=== PATIENT | female | born 1980 | race Caucasian/White ===

== ENCOUNTER 2019-10-29 08:30 | Outpatient (CLI) | payer OTHER, SELFPAY ==
--- NOTE | ~2019-10-29 | MM_ITS ---
EXAMINATION: MM screening da BI w cha HISTORY: Screening mammogram TECHNIQUE: Craniocaudal and mediolateral oblique 3-D tomosynthesis images were obtained and synthetic 2-D images were generated. CAD analysis was submitted and interpreted. COMPARISON: 07/27/2018 BREAST PARENCHYMAL COMPOSITION: The breasts are heterogeneously dense, which may obscure small masses . FINDINGS: There is no evidence of suspicious mass, calcification, or architectural distortion to sugg est malignancy in either breast. There has been no suspicious interval change. IMPRESSION: 1. No mammographic evidence of malignancy. 2. Recommend routine screening mammography in one year. BI-RADS Category 1: Negative Reviewed, dictated and finalized at location A.
== END 2019-10-29 08:31 | disposition home or self-care (01) ==
LOC: ANHIMG 08:35
PROVIDERS: PCP Physician Assistant; Visit Provider Physician Assistant
DX: Z12.31 Encounter for screening mammogram for malignant neoplasm of breast (principal)
CPT/HCPCS: 77063; 77067

== ENCOUNTER → 2021-02-01 15:40 | Outpatient (CLI) | payer OTHER, SELFPAY ==
--- NOTE | ~2021-02-01 | MM_ITS ---
EXAMINATION: MM screening da BI w cha HISTORY: Screening mammogram TECHNIQUE: Craniocaudal and mediolateral oblique 3-D tomosynthesis images were obtained and synthetic 2-D images were generated. CAD analysis was submitted and interpreted. COMPARISON: 10/29/2019, 07/27/2018 bilateral digital screening mammogram examinations BREAST PARENCHYMAL COMPOSITION: The breasts are heterogeneously dense, which may obscure small masses . FINDINGS: There is no evidence of suspicious mass, calcification, or architectural distortion to sugg est malignancy in either breast. There has been no suspicious interval change. IMPRESSION: 1. No mammographic evidence of malignancy. 2. Recommend routine screening mammography in one year. BI-RADS Category 1: Negative Reviewed, dictated and finalized at location A.
== END ==
PROVIDERS: PCP Physician Assistant; Visit Provider Physician Assistant
DX: Z12.31 Encounter for screening mammogram for malignant neoplasm of breast (principal)
CPT/HCPCS: 77063; 77067

== ENCOUNTER → 2022-02-04 07:24 | Outpatient (CLI) | payer OTHER, SELFPAY ==
--- NOTE | ~2022-02-04 | MM_ITS ---
EXAMINATION: MM screening da BI w cha HISTORY: Screening mammogram TECHNIQUE: Craniocaudal and mediolateral oblique 3-D tomosynthesis images were obtained and synthetic 2-D images were generated. CAD analysis was submitted and interpreted. COMPARISON: 02/01/2021, 10/29/2019, 07/27/2018 bilateral screening mammogram examinations BREAST PARENCHYMAL COMPOSITION: There are scattered areas of fibroglandular density. FINDINGS: There is no evidence of suspicious mass, calcification, or architectural distortion to sugg est malignancy in either breast. There has been no suspicious interval change. IMPRESSION: 1. No mammographic evidence of malignancy. 2. Recommend routine screening mammography in one year. BI-RADS Category 1: Negative Reviewed, dictated and finalized at location A.
== END ==
PROVIDERS: PCP Physician Assistant; Visit Provider Obstetrics & Gynecology Gynecology
DX: Z12.31 Encounter for screening mammogram for malignant neoplasm of breast (principal)
CPT/HCPCS: 77063; 77067

== ENCOUNTER → 2023-02-07 07:23 | Outpatient (CLI) | payer OTHER, SELFPAY ==
--- NOTE | ~2023-02-07 | MM_ITS ---
EXAMINATION: MM screening da BI w cha HISTORY: Screening mammogram TECHNIQUE: Craniocaudal and mediolateral oblique 3-D tomosynthesis images were obtained and synthetic 2-D images were generated. CAD analysis was submitted and interpreted. COMPARISON: 02/04/2022, 02/01/2021, 10/29/2019 bilateral screening mammogram examinations BREAST PARENCHYMAL COMPOSITION: There are scattered areas of fibroglandular density. FINDINGS: There is no evidence of suspicious mass, calcification, or architectural distortion to sugg est malignancy in either breast. There has been no suspicious interval change. IMPRESSION: 1. No mammographic evidence of malignancy. 2. Recommend routine screening mammography in one year. BI-RADS Category 1: Negative Reviewed, dictated and finalized at location A.
== END ==
PROVIDERS: PCP Nurse Practitioner; Visit Provider Nurse Practitioner
DX: Z12.31 Encounter for screening mammogram for malignant neoplasm of breast (principal)
CPT/HCPCS: 77063; 77067

== ENCOUNTER 2024-02-10 11:33 | Outpatient (CLI) | payer OTHER, SELFPAY ==
--- NOTE | ~2024-02-10 | MM_ITS ---
EXAMINATION: MM screening da BI w cha HISTORY: Screening TECHNIQUE: Craniocaudal and mediolateral oblique 3-D tomosynthesis images were obtained and synthetic 2-D images were generated. CAD analysis was submitted and interpreted. COMPARISON: Comparison to multiple prior studies sequentially, with oldest reviewed study dated 07/27. BREAST PARENCHYMAL COMPOSITION: Dense: The breasts are heterogeneously dense, which may obscure small masses FINDINGS: There is no evidence of suspicious mass, calcification, or architectural distortion to sugg est malignancy in either breast. There has been no suspicious interval change. IMPRESSION: 1. No mammographic evidence of malignancy. 2. Recommend routine screening mammography in one year. BI-RADS CATEGORY 1 - NEGATIVE Reviewed, dictated and finalized at location B.
== END 2024-02-10 11:34 | disposition home or self-care (01) ==
LOC: MICIMG 11:33
PROVIDERS: PCP Nurse Practitioner; Visit Provider Nurse Practitioner
DX: Z12.31 Encounter for screening mammogram for malignant neoplasm of breast (principal)
CPT/HCPCS: 77063; 77067

== ENCOUNTER 2024-10-26 02:49 | Day surgery (SDC) | payer OTHER, SELFPAY ==
[2024-10-13 10:59] VITALS: BMI 20.7
--- OUTSIDE RECORDS SUMMARY | 2024-10-26 02:51 | XMS_ITS | Data Portability ---
Author Organization [facility] Address [address] [place] [address] Care Team Providers Care Internet Technology Manager Name Role Phone ALYSSA MARTINEZ Primary Care Provider Unavailab le Assessment Encounter Date Assessment Date Assessment LastModified by Organization Details LastModified Time 01/20/2024 01/20/2024 Mammogram due in Feb. Gyne exam UTD : Dr. Ma Colonoscopy screening due. dental UTD eye exam UTD [email or web address] Not available 01/20/2024 10:37:06 Plan of Treatment Reminders Order Date Submit Date Provider Last Modified By Organization Details Last Modified Time Details Appointments ANNUAL 30 2024 09:00A M KULDEEP Melgoza Not available Not available Not available Lab TSH + free T4, serum 2023 024 [employer] [facility], [address], [address], 02/03/2024 09:25:35 lipid panel, serum [email or web address] [facility], [address], [address], 02/09/2024 12:51:20 vitamin B12 + folate, serum or blood 2023 024 [employer] [facility], [address], [address], 02/03/2024 09:25:36 CBC w/ auto diff 2023 024 [employer] [facility], [address], [place], [address], 02/03/2024 09:25:36 CMP, serum or plasma 2023 [employer] [facility], [address], [place], [address], 02/03/2024 09:25:36 HbA1c (hemoglob in A1c), blood 2023 [employer] [facility], [address], [place], [address], 02/03/2024 09:25:35 Referral None recorded. Procedures colonosco py screening (PROC) 2023 [facility], [address], [address], [place], [address], 10/22/2024 09:46:12 Surgeries None recorded. Imaging None recorded. Medication Orders None recorded. Patient TargetsNo targets recorded. Patient InstructionsNo instructions recorded. Reason for Referral None Reported. Results Created Date Observation Date Name Description Value Unit Range Abnormal Flag Note LastModifiedBy Organization Detail LastModifiedTime Result Notes None recorded. Problems Name Problem SNOMED Code Status Onset Date Resolution Date Notes Provider Name and Address Organization Details Recorded Time Body mass index 20-24 - normal 054685546 Active KULDEEP Melgoza Attn: Accounting ,[address] [place], [address] , [facility] 01/26/2024 08:16:15 Problem Notes None recorded. Procedures Surgical History Date Name Laterality Status Provider Name and Address Organization Details Recorded Time extraction of wisdom tooth completed Charlotte Hobson MA [place] [facility] 01/20/2024 10:16:14 cholecystectomy completed Charlotte Hobson MA [facility] 01/20/2024 10:16:17 Imaging Results None recorded. Procedure Notes None recorded. Medical Equipment None Reported. Allergies No known drug allergies Medications Name Sig Start Date Stop Date Status Note LastModified by Organization Details LastModified Time valacyclovi r 1 gram tablet TAKE 2 TABLETS BY MOUTH EVERY 12 HOURS FOR 1 DAY NEEDED FOR COLD SORE OR FLARE UP active Not Available Not Available No t Available doxycycline hyclate 50 mg capsule TAKE 1 TABLET BY MOUTH DAILY WITH FOOD active Not Available Not Available No t Available sertraline 100 mg tablet TAKE 1 TABLET BY MOUTH DAILY active Not Available Not Available No t Available phentermine 37.5 mg tablet TAKE 1 TABLET BY MOUTH EVERY DAY 01/19 completed Not Available Not Available Not Available hydrocortis one 2.5 % topical cream with perineal applicator APPLY A THIN LAYER TO THE RECTAL REGION TWO TO FOUR TIMES DAILY active Not Available Not Available No t Available metronidazo le 0.75 % topical gel APPLY TOPICALLY TO THE AFFECTED AREA OF FACE TWICE DAILY active Not Available Not Available No t Available Contrave 8 mg-90 mg tablet,exte nded release 01/19 completed Not Available Not Available Not Available Wegovy 0.25 mg/0.5 mL subcutaneou s pen injector active Not Available Not Available Not Available Vitals Date Recorded Systolic blood pressure Diastolic blood pressure Provider Name and Address Organization Details Last Updated DateTime 01/20/2024 130 mm[Hg] 80 mm[Hg] KULDEEP Melgoza Attn: Accounting,[address] [place], [address], [facility] 01/20/2024 10:36:09 Date Recorded Respiratory rate Body height Body mass index (BMI) Body weight Oxygen saturation Oxygen saturation in Arterial blood by Pulse oximetry Heart rate Systolic blood pressure Diastolic blood pressure Provider Name and Address Organization Details Last Updated DateTime 4 18 /min 175.26 cm 24.5 kg/m2 89372.3 3 g 100 % 100 % 84 /min 116 mm[Hg] 82 mm[Hg] Charlotte Hobson MA [facility] 4 10:17:46 Social History Question Answer Notes LastModified by Organizat ion Details LastModified Time Tobacco Smoking Status Never Smoker Charlotte Hobson MA null, [facility] 01/20/2024 10:15:43 Do You Have An Advance Directive? Yes Information n ot available 01/20/2024 Are You Blind Or Do You Have Difficulty Seeing? No Information n ot available 01/20/2024 What Is Your Level Of Caffeine Consumption? Moderate Information not available 01/20/2024 In The 14 Days Before Symptom Onset, Have You Had Close Contact With A Laboratory-confirm ed COVID-19 While That Case Was Ill? No Information n ot available 01/20/2024 In The 14 Days Before Symptom Onset, Have You Had Close Contact With A Person Who Is Under Investigation For COVID-19 While That Person Was Ill? No Information not available 01/20/2024 Have You Been To An Area Known To Be High Risk For COVID-19? No Information not available 01/20/2024 Are You Deaf Or Do You Have Serious Difficulty Hearing? No Information not available 01/20/2024 What Type Of Diet Are You Following? REGULAR Information n ot available 01/20/2024 Are There Any Guns Present In Your Home? No Information not available 01/20/2024 What Was The Date Of Your Most Recent Tobacco Screening? 01/20/2024 Information not available 01/20/2024 What Is Your Relationship Status? Information not available 01/20/2024 Do You Use Your Seat Belt Or Car Seat Routinely? Yes Information not available 01/20/2024 Do You Have Smoke And Carbon Monoxide Detectors In Your Home? Yes Information not available 01/20/2024 Do You Use Sunscreen Routinely? Yes Information not available 01/20/2024 Has Tobacco Cessation Counseling Been Provided? No Information not available 01/20/2024 Sex: Female Functional Status Question Answer Note LastModified by Organizat ion Details LastModified Time Do you use any illicit or recreational drugs? No Information not available 01/20/2024 Do you or have you ever used any other forms of tobacco or nicotine? No Information not available 01/20/2024 What is your level of alcohol consumption? Occasional Information not available 01/20/2024 Are you currently employed? Yes Information not available 01/20/2024 Are you able to care for yourself? 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 None Information not available 01/20/2024 Mental Status None recorded. Family History Relationship Description Onset Age of this Age Resolved Age Notes LastModified by Organization Details LastModified Time Maternal Grandmother Malignant tumor of colon [email or web address] Not available 2023 10:57:55 Medical History No medical history recorded. Gynecological History Statement/Question Response Menses Monthly N Current Control Method IUD Obstetrics History GPAL:G 2 P 2 0 0 2 Type Value Full Term 2 Induced 0 Spontaneous 0 Premature 0 Living 2 Total 2 Past Encounters Encounter ID Performer Location Encounter Start Date Encounter Closed Date Diagnosis/Indication Diagnosis SNOMED-CT Code Diagnosis ICD10 Code Diagnosis Note [id number] [facility] [address] [place] [phone] 01/20/2024 09:54:42 01/20/2024 10:59:37 Adult health examination 138329361 Z00.00 Annual wellness exam completed and fasting labs ordered for annual evaluation Cholesterol screening 27 2982089 Z13.220 Diabetes m ellitus screening 674948679 Z13.1 Thyroid di sorder screening 545483427 Z13.29 Long-term drug therapy 653261049 Z79.899 Screening for malignant neoplasm of colon 684540150 Z12.11 Baseline colonoscop y ordered for colon cancer screening Body mass index 20-24 - normal 046047022 Z68.24 BMI is 24.5 Health Concerns Section Related Observation LastModified by Organization Detai ls LastModified Time None Recorded Concern Status LastModified by Organization Details LastModified Time None Recorded Advance Directives Directive Y: Payers Insurance Date Sequence Insurance Name Policy Number Policy Aguirre Covered Member ID Aguirre Member ID Guarantor Name 01/27/2024 1 [employer] () Ewelina Nayak [id number] Ewelina Loaiza 01/20/2024 1 [facility] () [facility] [id number] Ewelina Nayak Notes Date Note Type Note Provider Name and Address Organization Details Recorded Time 01/20/2024 text/html pt is here for annual wellness exam. She has no complaints. KULDEEP Melgoza Attn: Accounting,[address], [place], [address], [facility] 01/26/2024 08:16:30 OBGyn Episode No OBEpisode recorded.
--- OUTSIDE RECORDS SUMMARY | 2024-10-26 02:51 | XMS_ITS | Data Portability ---
Author Organization [facility], Main Office Address [address] [place] [address] Assessment Encounter Date Assessment Date Assessment LastModified by Organization Details LastModified Time 01/16/2023 01/16/2023 pt states ob/gyne will order mammogram [email or web address] Not available 01/16/2023 11:03:04 Plan of Treatment Reminders Order Date Submit Date Provider Last Modified By Organization Details Last Modified Time Details Appointments None recorded. Lab lipid panel, serum 2022 023 [facility], [address], [place], [address], 3 07:18:41 CBC w/ auto diff 2022 023 [facility], [address], [place], [address], 3 07:18:43 CMP, serum or plasma 2022 023 [facility], [address], [place], [address], 3 07:18:42 TSH + free T4, serum 2022 023 [facility], [address], [place], [address], 3 07:18:39 vitamin B12 + folate, serum or blood 2022 023 [facility], [address], [place], [address], 3 07:18:44 HbA1c (hemoglobin A1c), blood 2022 023 [facility], [address], [place], [address], 3 07:18:42 Referral None recorded. Procedures None recorded. Surgeries None recorded. Imaging None recorded. Medication Orders Wegovy 0.25 mg/0.5 mL subcutaneou s pen injector 2022 023 [email or web address] [id number], [address] [facility], [place], [place], [phone], 3 11:00:20 Patient TargetsNo targets recorded. Patient InstructionsNo instructions recorded. Reason for Referral None Reported. Results Created Date Observation Date Name Description Value Unit Range Abnormal Flag Note LastModifiedBy Organization Detail LastModifiedTime 01/30/20 22 01/30/2022 REFLE XIVE URINE CULTU RE reflexive urine culture NO CULTU RE INDIC ATED Not Available [facility] [address], [address], 01/30/2022 02:16:40 01/30/20 22 01/30/2022 URINA LYSIS , COMPL ETE W/REF TRESA TO CULTU RE color yellow yellow normal Not Available [facility] [address], [address], 01/30/2022 02:16:40 01/30/20 22 01/30/2022 URINA LYSIS , COMPL ETE W/REF TRESA TO CULTU RE appearance clear clear normal Not Available [facility] [address], [address], 01/30/2022 02:16:40 01/30/20 22 01/30/2022 URINA LYSIS , COMPL ETE W/REF TRESA TO CULTU RE specific gravity 1.025 1.001- 1.035 normal Not Available [address] [address] [place], [address], 01/30/2022 02:16:40 01/30/20 22 01/30/2022 URINA LYSIS , COMPL ETE W/REF TRESA TO CULTU RE pH < or = 5.0 5.0-8. 0 normal Not Available [address], [address], 01/30/2022 02:16:40 01/30/20 22 01/30/2022 URINA LYSIS , COMPL ETE W/REF TRESA TO CULTU RE glucose negati ve negati ve normal Not Available [address], [address], 01/30/2022 02:16:40 01/30/20 22 01/30/2022 URINA LYSIS , COMPL ETE W/REF TRESA TO CULTU RE bilirubin negati ve negati ve normal Not Available [address], [address], 01/30/2022 02:16:40 01/30/20 22 01/30/2022 URINA LYSIS , COMPL ETE W/REF TRESA TO CULTU RE ketones negati ve negati ve normal Not Available [address] [address] [place], [address], 01/30/2022 02:16:40 01/30/20 22 01/30/2022 URINA LYSIS , COMPL ETE W/REF TRESA TO CULTU RE occult blood negati ve negati ve normal Not Available [address] [place], [address], 01/30/2022 02:16:40 01/30/20 22 01/30/2022 URINA LYSIS , COMPL ETE W/REF TRESA TO CULTU RE protein negati ve negati ve normal Not Available [address] [place], [address], 01/30/2022 02:16:40 01/30/20 22 01/30/2022 URINA LYSIS , COMPL ETE W/REF TRESA TO CULTU RE nitrite negati ve negati ve normal Not Available [address], [address], 01/30/2022 02:16:40 01/30/20 22 01/30/2022 URINA LYSIS , COMPL ETE W/REF TRESA TO CULTU RE leukocyte esterase negati ve negati ve normal Not Available [address], [address], 01/30/2022 02:16:40 01/30/20 22 01/30/2022 URINA LYSIS , COMPL ETE W/REF TRESA TO CULTU RE WBC 0-5 /hpf < or = 5 normal Not Available [address], [address], 01/30/2022 02:16:40 01/30/20 22 01/30/2022 URINA LYSIS , COMPL ETE W/REF TRESA TO CULTU RE RBC 0-2 /hpf < or = 2 normal Not Available [address], [address], 01/30/2022 02:16:40 01/30/20 22 01/30/2022 URINA LYSIS , COMPL ETE W/REF TRESA TO CULTU RE squamous epithelial cells 0-5 /hpf < or = 5 Not Available [address], [address], 01/30/2022 02:16:40 01/30/20 22 01/30/2022 URINA LYSIS , COMPL ETE W/REF TRESA TO CULTU RE bacteria few /hpf none seen abnormal Not Available [address], [address], 01/30/2022 02:16:40 01/30/20 22 01/30/2022 URINA LYSIS , COMPL ETE W/REF TRESA TO CULTU RE hyaline cast none seen /lpf none seen normal Not Available [address], [address], 01/30/2022 02:16:40 01/30/20 22 01/30/2022 CBC (INCL UDES DIFF/ PLT) white blood cell count 5.0 thous and/u L 3.8-10 .8 normal Not Available [address], [address], 01/30/2022 02:16:39 01/30/20 22 01/30/2022 CBC (INCL UDES DIFF/ PLT) red blood cell count 4.38 rizwan on/uL 3.80-5 .10 normal Not Available [address], [address], 01/30/2022 02:16:39 01/30/20 22 01/30/2022 CBC (INCL UDES DIFF/ PLT) hemoglobin 13.0 g/dL 11.7-1 5.5 normal Not Available [address], [address], 01/30/2022 02:16:39 01/30/20 22 01/30/2022 CBC (INCL UDES DIFF/ PLT) hematocrit 39.0 % 35.0-4 5.0 normal Not Available [address], [address], 01/30/2022 02:16:39 01/30/20 22 01/30/2022 CBC (INCL UDES DIFF/ PLT) MCV 89.0 fL 80.0-1 00.0 normal Not Available [address], [address], 01/30/2022 02:16:39 01/30/20 22 01/30/2022 CBC (INCL UDES DIFF/ PLT) MCH 29.7 pg 27.0-3 3.0 normal Not Available [address], [address], 01/30/2022 02:16:39 01/30/20 22 01/30/2022 CBC (INCL UDES DIFF/ PLT) MCHC 33.3 g/dL 32.0-3 6.0 normal Not Available [address], [address], 01/30/2022 02:16:39 01/30/20 22 01/30/2022 CBC (INCL UDES DIFF/ PLT) RDW 12.0 % 11.0-1 5.0 normal Not Available [address], [address], 01/30/2022 02:16:39 01/30/20 22 01/30/2022 CBC (INCL UDES DIFF/ PLT) platelet count 247 thous and/u L 140-40 0 normal Not Available [address], [address], 01/30/2022 02:16:39 01/30/20 22 01/30/2022 CBC (INCL UDES DIFF/ PLT) MPV 11.0 fL 7.5-12 .5 normal Not Available [address], [address], 01/30/2022 02:16:39 01/30/20 22 01/30/2022 CBC (INCL UDES DIFF/ PLT) absolute neutrophils 3115 cells /uL 1500-7 800 normal Not Available [address], [address], 01/30/2022 02:16:39 01/30/20 22 01/30/2022 CBC (INCL UDES DIFF/ PLT) absolute lymphocytes 1280 cells /uL 850-39 00 normal Not Available [address], [address], 01/30/2022 02:16:39 01/30/20 22 01/30/2022 CBC (INCL UDES DIFF/ PLT) absolute monocytes 445 cells /uL 200-95 0 normal Not Available [address], [address], 01/30/2022 02:16:39 01/30/20 22 01/30/2022 CBC (INCL UDES DIFF/ PLT) absolute eosinophils 140 cells /uL 15-500 normal Not Available [address], [address], 01/30/2022 02:16:39 01/30/20 22 01/30/2022 CBC (INCL UDES DIFF/ PLT) absolute basophils 20 cells /uL 0-200 normal Not Available [address], [address], 01/30/2022 02:16:39 01/30/20 22 01/30/2022 CBC (INCL UDES DIFF/ PLT) neutrophils 62.3 % normal Not Available [address], [address], 01/30/2022 02:16:39 01/30/20 22 01/30/2022 CBC (INCL UDES DIFF/ PLT) lymphocytes 25.6 % normal Not Available [address], [address], 01/30/2022 02:16:39 01/30/20 22 01/30/2022 CBC (INCL UDES DIFF/ PLT) monocytes 8.9 % normal Not Available [facility] [address], [address], 01/30/2022 02:16:39 01/30/20 22 01/30/2022 CBC (INCL UDES DIFF/ PLT) eosinophils 2.8 % normal Not Available [facility] [address], [address], 01/30/2022 02:16:39 01/30/20 22 01/30/2022 CBC (INCL UDES DIFF/ PLT) basophils 0.4 % normal Not Available [facility] [address] [place], [address], 01/30/2022 02:16:39 01/30/20 22 01/30/2022 T4, FREE T4, free 0.9 NG/dL 0.8-1. 8 normal Not Available [facility] [address] [place], [address], 01/30/2022 02:16:38 01/30/20 22 01/30/2022 TSH TSH 2.37 mIU/L normal Refer ence Range > or = 20 Years 0.40- 4.50 Pregn armaan Range s First trime ster 0.26- 2.66 Secon d trime ster 0.55- 2.73 Third trime ster 0.43- 2.91 Not Available [facility] [address] [address] [place], [address], 01/30/2022 02:16:37 01/30/20 22 01/30/2022 HEMOG LOBIN A1C hemoglobin A1C 5.1 %_of_ total _HGB <5.7 normal For the purpo se of tripp [place] for the prese nce of diabe abida: <5.7% Consi stent with the absen ce of diabe abida 5.7-6 .4% Consi stent with incre ased risk for diabe abida (pred iabet es) > or =6.5% Consi stent with diabe abida This assay resul t is consi stent with a decre ased risk of diabe abida. Curre ntly, no conse nsus exist s regar janel use of hemog lobin A1c for diagn osis of diabe abida in child caden. Accor ding to Ameri can Diabe abida Assoc iatio n (ADA) guide lines , hemog lobin A1c <7.0% repre sents optim al contr ol in non-p regna nt diabe tic patie nts. Diffe rent metri cs may apply to speci fic patie nt popul ation s. Stand ards of Medic al Care in Diabe abida(A DA). Not Available [facility] [address] [address] [place], [address], 01/30/2022 02:16:37 01/30/20 22 01/30/2022 COMPR EHENS CORWIN METAB OLIC PANEL glucose 96 mg/dL 65-99 normal Fasti ng refer ence inter phi Not Available [facility] [address], [address], 01/30/2022 02:16:36 01/30/20 22 01/30/2022 COMPR EHENS CORWIN METAB OLIC PANEL urea nitrogen (BUN) 17 mg/dL 7-25 normal Not Available [facility] [address] [address] [place], [address], 01/30/2022 02:16:36 01/30/20 22 01/30/2022 COMPR EHENS CORWIN METAB OLIC PANEL creatinine 0.75 mg/dL 0.50-0 .99 normal Not Available [address] [address] [place], [address], 01/30/2022 02:16:36 01/30/20 22 01/30/2022 COMPR EHENS CORWIN METAB OLIC PANEL eGFR 101 mL/mi n/1.7 3m2 > or = 60 normal The eGFR is based on the CKD-E PI 2020 equat ion. To calcu late the new eGFR from a previ ous Creat inine or Cysta tin C resul t, go to https ://cisco w.jules chin.o valentin/mini moreau s/ kdoqi /gfr% 5Fcal culat or Not Available [address], [address], 01/30/2022 02:16:36 01/30/20 22 01/30/2022 COMPR EHENS CORWIN METAB OLIC PANEL BUN/creatini ne ratio not applic able (calc ) 6-22 Not Available [address], [address], 01/30/2022 02:16:36 01/30/20 22 01/30/2022 COMPR EHENS CORWIN METAB OLIC PANEL sodium 136 mmol/ L 135-14 6 normal Not Available [address], [address], 01/30/2022 02:16:36 01/30/20 22 01/30/2022 COMPR EHENS CORWIN METAB OLIC PANEL potassium 4.4 mmol/ L 3.5-5. 3 normal Not Available [address], [address], 01/30/2022 02:16:36 01/30/20 22 01/30/2022 COMPR EHENS CORWIN METAB OLIC PANEL chloride 104 mmol/ L 98-110 normal Not Available [address], [address], 01/30/2022 02:16:36 01/30/20 22 01/30/2022 COMPR EHENS CORWIN METAB OLIC PANEL carbon dioxide 24 mmol/ L 20-32 normal Not Available [address], [address], 01/30/2022 02:16:36 01/30/20 22 01/30/2022 COMPR EHENS CORWIN METAB OLIC PANEL calcium 9.4 mg/dL 8.6-10 .2 normal Not Available [address], [address], 01/30/2022 02:16:36 01/30/20 22 01/30/2022 COMPR EHENS CORWIN METAB OLIC PANEL protein, total 6.8 g/dL 6.1-8. 1 normal Not Available [address], [address], 01/30/2022 02:16:36 01/30/20 22 01/30/2022 COMPR EHENS CORWIN METAB OLIC PANEL albumin 4.2 g/dL 3.6-5. 1 normal Not Available [address] [address] [place], [address], 01/30/2022 02:16:36 01/30/20 22 01/30/2022 COMPR EHENS CORWIN METAB OLIC PANEL globulin 2.6 g/dL_ (calc ) 1.9-3. 7 normal Not Available [address], [address], 01/30/2022 02:16:36 01/30/20 22 01/30/2022 COMPR EHENS CORWIN METAB OLIC PANEL albumin/glob ulin ratio 1.6 (calc ) 1.0-2. 5 normal Not Available [address], [address], 01/30/2022 02:16:36 01/30/20 22 01/30/2022 COMPR EHENS CORWIN METAB OLIC PANEL bilirubin, total 0.4 mg/dL 0.2-1. 2 normal Not Available [address], [address], 01/30/2022 02:16:36 01/30/20 22 01/30/2022 COMPR EHENS CORWIN METAB OLIC PANEL alkaline phosphatase 71 U/L 31-125 normal Not Available [address] [address] [place], [address], 01/30/2022 02:16:36 01/30/20 22 01/30/2022 COMPR EHENS CORWIN METAB OLIC PANEL AST 11 U/L 10-30 normal Not Available [address], [address], 01/30/2022 02:16:36 01/30/20 22 01/30/2022 COMPR EHENS CORWIN METAB OLIC PANEL ALT 11 U/L 6-29 normal Not Available [address], [address], 01/30/2022 02:16:36 01/30/20 22 01/30/2022 LIPID PANEL WITH RATIO S LDL-choleste rol 123 mg/dL _(bc c) high Refer ence range : <100 Maximo able range <100 mg/dL for prima ry preve ntion ; <70 mg/dL for patie nts with CHD or diabe tic patie nts with > or = 2 CHD risk facto rs. LDL-C is now calcu lated using the Viviana n-Hop kins calcu latio n, which is a valid ated novel metho d provi ding avery r accur acy than the Fried mark equat ion in the estim ation of LDL-C . Viviana chirinos SS et al. DEDE. 2013; 310(1 9): 2061- 2068 (http ://ed ucati on.Qu Informed Trades. com/f aq/FA Q164) Not Available [employer] [facility] [address] [place], [address], 01/30/2022 02:16:36 01/30/20 22 01/30/2022 LIPID PANEL WITH RATIO S chol/HDLC ratio 3.7 (calc ) <5.0 normal Not Available [employer] [facility] [address] [place], [address], 01/30/2022 02:16:36 01/30/20 22 01/30/2022 LIPID PANEL WITH RATIO S LDL/HDL ratio 2.4 (calc ) Below avera ge Risk: <2.34 [place] ge Risk: 2.35- 4.12 Moder ate Risk: 4.13- 5.56 High Risk: >5.57 Not Available [employer] [facility] [address] [place], [address], 01/30/2022 02:16:36 01/30/20 22 01/30/2022 LIPID PANEL WITH RATIO S non HDL cholesterol 138 mg/dL _(bc c) <130 high For patie nts with diabe abida plus 1 major ASCVD risk facto r, treat ing to a non-H DL-C goal of <100 mg/dL (LDL- C of <70 mg/dL ) is consi dered a thera peuti c optio n. Not Available [address], [address], 01/30/2022 02:16:36 01/30/20 22 01/30/2022 LIPID PANEL WITH RATIO S cholesterol, total 190 mg/dL <200 normal Not Available [address], [address], 01/30/2022 02:16:36 01/30/20 22 01/30/2022 LIPID PANEL WITH RATIO S HDL cholesterol 52 mg/dL > or = 50 normal Not Available [address], [address], 01/30/2022 02:16:36 01/30/20 22 01/30/2022 LIPID PANEL WITH RATIO S triglyceride s 56 mg/dL <150 normal Not Available [address], [address], 01/30/2022 02:16:36 01/23/2001/23/2023 TSH+F REE T4 TSH 1.48 mIU/L normal Refer ence Range > or = 20 Years 0.40- 4.50 Pregn armaan Range s First trime ster 0.26- 2.66 Secon d trime ster 0.55- 2.73 Third trime ster 0.43- 2.91 Not Available [address], [address], 01/23/2023 07:18:39 01/23/2001/23/2023 TSH+F REE T4 T4, free 0.8 NG/dL 0.8-1. 8 normal Not Available [address], [address], 01/23/2023 07:18:39 01/23/20 23 01/23/2023 LIPID PANEL WITH RATIO S cholesterol, total 196 mg/dL <200 normal Not Available [facility] [address] [place], [address], 01/23/2023 07:18:41 01/23/2001/23/2023 LIPID PANEL WITH RATIO S HDL cholesterol 51 mg/dL > or = 50 normal Not Available [facility] [address] [address] [place], [address], 01/23/2023 07:18:41 01/23/20 23 01/23/2023 LIPID PANEL WITH RATIO S triglyceride s 59 mg/dL <150 normal Not Available [facility] [address] [address] [place], [address], 01/23/2023 07:18:41 01/23/2001/23/2023 LIPID PANEL WITH RATIO S LDL-choleste rol 130 mg/dL _(bc c) high Refer ence range : <100 Maximo able range <100 mg/dL for prima ry preve ntion ; <70 mg/dL for patie nts with CHD or diabe tic patie nts with > or = 2 CHD risk facto rs. LDL-C is now calcu lated using the Viviana chirinos-Hop choco hyattu alban n, which is a valid ated novel catherine varela r accur acy than the Fried mark equat ion in the estim ation of LDL-C . Viviana chirinos SS et al. DEDE. 2013; 310(1 9): 2061- 2068 (http ://ed ucati on.Qu Maureen parker Faverys. com/f aq/FA Q164) Not Available [facility] [address] [address], [place], [address], 01/23/2023 07:18:41 01/23/2001/23/2023 LIPID PANEL WITH RATIO S chol/HDLC ratio 3.8 (calc ) <5.0 normal Not Available [facility] [address] [place], [address], 01/23/2023 07:18:41 01/23/2001/23/2023 LIPID PANEL WITH RATIO S LDL/HDL ratio 2.5 (calc ) Below avera ge Risk: <2.34 [place] ge Risk: 2.35- 4.12 Moder ate Risk: 4.13- 5.56 High Risk: >5.57 Not Available [address], [address], 01/23/2023 07:18:41 01/23/2001/23/2023 LIPID PANEL WITH RATIO S non HDL cholesterol 145 mg/dL _(bc c) <130 high For patie nts with diabe abida plus 1 major ASCVD risk facto r, treat ing to a non-H DL-C goal of <100 mg/dL (LDL- C of <70 mg/dL ) is arceliai galileo romeo theragueda peuti c optio n. Not Available [address], [address], 01/23/2023 07:18:41 01/23/2001/23/2023 COMPR EHENS CORWIN METAB OLIC PANEL glucose 90 mg/dL 65-99 normal Fasti ng refer ence inter phi Not Available [address], [address], 01/23/2023 07:18:42 01/23/2001/23/2023 COMPR EHENS CORWIN METAB OLIC PANEL urea nitrogen (BUN) 13 mg/dL 7-25 normal Not Available [address], [address], 01/23/2023 07:18:42 01/23/2001/23/2023 COMPR EHENS CORWIN METAB OLIC PANEL creatinine 0.76 mg/dL 0.50-0 .99 normal Not Available [address], [address], 01/23/2023 07:18:42 01/23/2001/23/2023 COMPR EHENS CORWIN METAB OLIC PANEL eGFR 99 mL/mi n/1.7 3m2 > or = 60 normal Not Available [address], [address], 01/23/2023 07:18:42 01/23/20 23 01/23/2023 COMPR EHENS CORWIN METAB OLIC PANEL BUN/creatini ne ratio SEE NOTE: (calc ) 6-22 Not Repor mercedes: BUN and Creat inine are withi n refer ence range . Not Available [address], [address], 01/23/2023 07:18:42 01/23/20 23 01/23/2023 COMPR EHENS CORWIN METAB OLIC PANEL sodium 138 mmol/ L 135-14 6 normal Not Available [address], [address], 01/23/2023 07:18:42 01/23/20 23 01/23/2023 COMPR EHENS CORWIN METAB OLIC PANEL potassium 4.3 mmol/ L 3.5-5. 3 normal Not Available [address], [address], 01/23/2023 07:18:42 01/23/20 23 01/23/2023 COMPR EHENS CORWIN METAB OLIC PANEL chloride 105 mmol/ L 98-110 normal Not Available [address], [address], 01/23/2023 07:18:42 01/23/20 23 01/23/2023 COMPR EHENS CORWIN METAB OLIC PANEL carbon dioxide 24 mmol/ L 20-32 normal Not Available [address], [address], 01/23/2023 07:18:42 01/23/20 23 01/23/2023 COMPR EHENS CORWIN METAB OLIC PANEL calcium 9.2 mg/dL 8.6-10 .2 normal Not Available [address] [place], [address], 01/23/2023 07:18:42 01/23/2001/23/2023 COMPR EHENS CORWIN METAB OLIC PANEL protein, total 6.6 g/dL 6.1-8. 1 normal Not Available [address], [address], 01/23/2023 07:18:42 01/23/2001/23/2023 COMPR EHENS CORWIN METAB OLIC PANEL albumin 4.0 g/dL 3.6-5. 1 normal Not Available [address], [address], 01/23/2023 07:18:42 01/23/2001/23/2023 COMPR EHENS CORWIN METAB OLIC PANEL globulin 2.6 g/dL_ (calc ) 1.9-3. 7 normal Not Available [address], [address], 01/23/2023 07:18:42 01/23/2001/23/2023 COMPR EHENS CORWIN METAB OLIC PANEL albumin/glob ulin ratio 1.5 (calc ) 1.0-2. 5 normal Not Available [address], [address], 01/23/2023 07:18:42 01/23/2001/23/2023 COMPR EHENS CORWIN METAB OLIC PANEL bilirubin, total 0.4 mg/dL 0.2-1. 2 normal Not Available [address], [address], 01/23/2023 07:18:42 01/23/2001/23/2023 COMPR EHENS CORWIN METAB OLIC PANEL alkaline phosphatase 73 U/L 31-125 normal Not Available [address] [address] [place], [address], 01/23/2023 07:18:42 01/23/20 23 01/23/2023 COMPR EHENS CORWIN METAB OLIC PANEL AST 16 U/L 10-30 normal Not Available [address] [address] [place], [address], 01/23/2023 07:18:42 01/23/20 23 01/23/2023 COMPR EHENS CORWIN METAB OLIC PANEL ALT 17 U/L 6-29 normal Not Available [facility] [address] [address] [place], [address], 01/23/2023 07:18:42 01/23/20 23 01/23/2023 HEMOG LOBIN A1C hemoglobin A1C 5.1 %_of_ total _HGB <5.7 normal For the purpo se of tripp [place] for the prese nce of diabe abida: <5.7% Consi stent with the absen ce of diabe abida 5.7-6 .4% Consi stent with incre ased risk for diabe abida (pred iabet es) > or =6.5% Consi stent with diabe abida This assay resul t is consi stent with a decre ased risk of diabe abida. Curre ntly, no conse nsus exist darryl islas use of hemog lobin A1c for diagn osis of diabe abida in child caden. Accor ding to Ameri can Diabe abida Assoc iatio n (ADA) guide lines , hemog lobin A1c <7.0% repre sents optim al contr ol in non-p regna nt diabe tic patie nts. Diffe rent metri cs may apply to speci fic patie nt popul ation s. Stand ards of Medic al Care in Diabe abida(A DA). Not Available [facility] [address] [address] [place], [address], 01/23/2023 07:18:42 01/23/20 23 01/23/2023 CBC (INCL UDES DIFF/ PLT) white blood cell count 4.9 thous and/u L 3.8-10 .8 normal Not Available [facility] [address], [address], 01/23/2023 07:18:43 01/23/2001/23/2023 CBC (INCL UDES DIFF/ PLT) red blood cell count 4.40 rizwan on/uL 3.80-5 .10 normal Not Available [facility] [address], [address], 01/23/2023 07:18:43 01/23/2001/23/2023 CBC (INCL UDES DIFF/ PLT) hemoglobin 13.2 g/dL 11.7-1 5.5 normal Not Available [facility] [address], [address], 01/23/2023 07:18:43 01/23/2001/23/2023 CBC (INCL UDES DIFF/ PLT) hematocrit 39.3 % 35.0-4 5.0 normal Not Available [address], [address], 01/23/2023 07:18:43 01/23/2001/23/2023 CBC (INCL UDES DIFF/ PLT) MCV 89.3 fL 80.0-1 00.0 normal Not Available [address], [address], 01/23/2023 07:18:43 01/23/2001/23/2023 CBC (INCL UDES DIFF/ PLT) MCH 30.0 pg 27.0-3 3.0 normal Not Available [facility] [address], [address], 01/23/2023 07:18:43 01/23/2001/23/2023 CBC (INCL UDES DIFF/ PLT) MCHC 33.6 g/dL 32.0-3 6.0 normal Not Available [facility] [address], [address], 01/23/2023 07:18:43 01/23/20 23 01/23/2023 CBC (INCL UDES DIFF/ PLT) RDW 11.8 % 11.0-1 5.0 normal Not Available [address], [address], 01/23/2023 07:18:43 01/23/2001/23/2023 CBC (INCL UDES DIFF/ PLT) platelet count 237 thous and/u L 140-40 0 normal Not Available [address], [address], 01/23/2023 07:18:43 01/23/2001/23/2023 CBC (INCL UDES DIFF/ PLT) MPV 11.2 fL 7.5-12 .5 normal Not Available [address], [address], 01/23/2023 07:18:43 01/23/20 23 01/23/2023 CBC (INCL UDES DIFF/ PLT) absolute neutrophils 3018 cells /uL 1500-7 800 normal Not Available [address], [address], 01/23/2023 07:18:43 01/23/20 23 01/23/2023 CBC (INCL UDES DIFF/ PLT) absolute lymphocytes 1328 cells /uL 850-39 00 normal Not Available [address], [address], 01/23/2023 07:18:43 01/23/2001/23/2023 CBC (INCL UDES DIFF/ PLT) absolute monocytes 397 cells /uL 200-95 0 normal Not Available [address], [address], 01/23/2023 07:18:43 01/23/20 23 01/23/2023 CBC (INCL UDES DIFF/ PLT) absolute eosinophils 137 cells /uL 15-500 normal Not Available [facility] [address], [address], 01/23/2023 07:18:43 01/23/20 23 01/23/2023 CBC (INCL UDES DIFF/ PLT) absolute basophils 20 cells /uL 0-200 normal Not Available [address], [address], 01/23/2023 07:18:43 01/23/20 23 01/23/2023 CBC (INCL UDES DIFF/ PLT) neutrophils 61.6 % normal Not Available [facility] [address], [address], 01/23/2023 07:18:43 01/23/20 23 01/23/2023 CBC (INCL UDES DIFF/ PLT) lymphocytes 27.1 % normal Not Available [facility] [address], [address], 01/23/2023 07:18:43 01/23/20 23 01/23/2023 CBC (INCL UDES DIFF/ PLT) monocytes 8.1 % normal Not Available [address], [address], 01/23/2023 07:18:43 01/23/20 23 01/23/2023 CBC (INCL UDES DIFF/ PLT) eosinophils 2.8 % normal Not Available [address], [address], 01/23/2023 07:18:43 01/23/20 23 01/23/2023 CBC (INCL UDES DIFF/ PLT) basophils 0.4 % normal Not Available [address], [address], 01/23/2023 07:18:43 01/23/20 23 01/23/2023 VITAM IN B12/F OLATE , SERUM PANEL vitamin B12 189 pg/mL 200-11 00 low Not Available [address], [address], 01/23/2023 07:18:44 01/23/20 23 01/23/2023 VITAM IN B12/F OLATE , SERUM PANEL folate, serum 6.7 NG/mL normal Refer ence Range Low: <3.4 Borde rline : 3.4-5 .4 Lashay l: >5.4 Not Available [facility] [address] [place], [address], 01/23/2023 07:18:44 02/03/20 21 02/02/2021 MAMMO , scree lizett, digit al, bilat eral No observ ation record ed. [id number] [facility] (Mammography) [address], [place], [address], 07/10/2022 20:06:19 03/29/20 22 02/04/2022 MAMMO , scree lizett, digit al, bilat eral No observ ation record ed. [id number] [facility] [address], [place], [address], 07/10/2022 20:06:19 Result Notes None recorded. Problems Name Problem SNOMED Code Status Onset Date Resolution Date Notes Provider Name and Address Organization Details Recorded Time Generalized anxiety disorder 08617589 Active 2018 Not Available [facility] 3 20:04:24 Eruption 005923029 Active 2021 Not Available [facility] 3 20:04:24 Problem Notes None recorded. Procedures Surgical History Date Name Laterality Status Provider Name and Address Organization Details Recorded Time section completed Not Available [facility] 07/10/2022 20:03:07 Cholecystectomy completed Not Available [facility] 07/10/2022 20:03:07 Imaging Results None recorded. Procedure Notes None recorded. Medical Equipment None Reported. Allergies No known drug allergies Medications Name Sig Start Date Stop Date Status Note LastModified by Organization Details LastModified Time azithromyci n 250 mg tablet 01/05 completed Not Available Not Available Not Available doxycycline hyclate 50 mg capsule TAKE 1 CAPSULE BY MOUTH EVERY DAY 05/23 completed Not Available Not Available Not Available sertraline 100 mg tablet TAKE 1 TABLET BY MOUTH EVERY DAY active Not Available Not Available No t Available phentermine 37.5 mg tablet TAKE 1 TABLET BY MOUTH EVERY DAY IN THE MORNING 05/23 completed Not Available Not Available Not Available triamcinolo ne acetonide 0.1 % topical cream 01/06 completed Not Available Not Available Not Available Vanicream topical 01/06 completed Not Available Not Available Not Available benzonatate 100 mg capsule 01/05 completed Not Available Not Available Not Available metronidazo le 0.75 % topical gel APPLY TOPICALLY TO AFFECTED AREAS ON THE FACE TWICE DAILY active Not Available Not Available No t Available naproxen 500 mg tablet 01/06 completed Not Available Not Available Not Available Contrave 8 mg-90 mg tablet,exte nded release Take by oral route for 18 days. active Not Available Not Available No t Available Afluria Quad (PF) 60 mcg (15 mcg x 4)/0.5 mL IM syringe ADM 0.5ML IM UTD active Not Available Not Available No t Available Fluarix Quad (PF) 60 mcg (15 mcg x 4)/0.5 mL IM syringe ADM 0.5ML IM UTD 01/09 completed Not Available Not Available Not Available Wegovy 0.25 mg/0.5 mL subcutaneou s pen injector Inject 0.25 mg every week by subcutane ous route as directed. 01/29 completed Not Available Not Available Not Available Vitals Date Recorded Body mass index (BMI) Body height Oxygen saturation Oxygen saturation in Arterial blood by Pulse oximetry Heart rate Body temperature Body weight Systolic blood pressure Diastolic blood pressure Provider Name and Address Organization Details Last Updated DateTime 1 26.8 kg/m2 175.26 cm 98 % 98 % 104 /min 97.2 [degF] 64132.9 4 g 118 mm[Hg] 70 mm[Hg] Not Available [facility] 3 20:03:49 Date Recorded Oxygen saturation Oxygen saturation in Arterial blood by Pulse oximetry Heart rate Respiratory rate Body temperature Body weight Systolic blood pressure Diastolic blood pressure Provider Name and Address Organization Details Last Updated DateTime 2 98 % 98 % 78 /min 16 /min 98 [degF] 16500.4 4 g 124 mm[Hg] 78 mm[Hg] Not Available [facility] 3 20:03:49 Date Recorded Body height Body temperature Body mass index (BMI) Body weight Respiratory rate Oxygen saturation Oxygen saturation in Arterial blood by Pulse oximetry Heart rate Systolic blood pressure Diastolic blood pressure Provider Name and Address Organization Details Last Updated DateTime 3 175.26 cm 96.4 [degF] 30.1 kg/m2 82825.0 5 g 16 /min 98 % 98 % 75 /min 120 mm[Hg] 72 mm[Hg] EPI [place] [facility] [place] [facility] 3 10:34:16 Social History Question Answer Notes LastModified by Organizat ion Details LastModified Time Tobacco Smoking Status Never Smoker Not Available [facility] 07/10/2022 20:03:00 Do You Have An Advance Directive? Yes [id number] Information not available 07/10/2022 What Is Your Level Of Caffeine Consumption? None [id number] Information not available 07/10/2022 In The 14 Days Before Symptom Onset, Have You Had Close Contact With A Laboratory-confirm ed COVID-19 While That Case Was Ill? No [id number] Information not available 07/10/2022 In The 14 Days Before Symptom Onset, Have You Had Close Contact With A Person Who Is Under Investigation For COVID-19 While That Person Was Ill? No [id number] Information not available 07/10/2022 What Type Of Diet Are You Following? REGULAR [id number] Information not available 07/10/2022 Have There Been Any Changes To Your Family Or Social Situation? No [id number] Information not available 07/10/2022 Are There Any Guns Present In Your Home? Yes [id number] Information not available 07/10/2022 Do You Use Insect Repellent Routinely? No [id number] Information not available 07/10/2022 Have You Ever Been Counseled For Unhealthy Alcohol Use? Yes Information not available 01/15/2023 What Is Your Relationship Status? [id number] Information not available 07/10/2022 Do You Use Your Seat Belt Or Car Seat Routinely? Yes [id number] Information not available 07/10/2022 Do You Have Smoke And Carbon Monoxide Detectors In Your Home? Yes [id number] Information not available 07/10/2022 Do You Use Sunscreen Routinely? Yes [id number] Information not available 07/10/2022 Have You Recently Traveled Abroad? No [id number] Information not available 07/10/2022 Do You Have Any Dietary Restrictions? No [id number] Information not available 07/10/2022 Sex: Unknown Functional Status Question Answer Note LastModified by Organizat ion Details LastModified Time Do you use any illicit or recreational drugs? No [id number] Information not available 07/10/2022 Do you or have you ever used any other forms of tobacco or nicotine? No [id number] Information not available 07/10/2022 What is your level of alcohol consumption? Occasional [id number] Information not available 07/10/2022 Are you currently employed? 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 Moderate [id number] Information not available 07/10/2022 Mental Status None recorded. Family History Relationship Description Onset Age of this Age Resolved Age Notes LastModified by Organization Details LastModified Time Father No current problems or disability [id number] Not available 07/10/2022 20:03:08 Mother No current problems or disability [id number] Not available 07/10/2022 20:03:08 Medical History Condition Response HERPES Y Gynecological History Statement/Question Response Menses Monthly Y STIs/STDs Y Abnormal Pap Y Date of Last Pap 05/26/2018 Date of Last Mammogram 10/29/2019 Obstetrics History GPAL:G 0 P 0 0 0 0 Immunizations Vaccine Type Date Status Note Provider Nam e and Address Organization Details Recorded Time Influenza, split virus, quadrivalent, preservative 9 completed Not Available [facility] 07/10/2022 20:06:12 Influenza, split virus, quadrivalent, preservative 8 completed Not Available [facility] 07/10/2022 20:06:12 Past Encounters Encounter ID Performer Location Encounter Start Date Encounter Closed Date Diagnosis/Indication Diagnosis SNOMED-CT Code Diagnosis ICD10 Code Diagnosis Note [id number] KULDEEP Melgoza [facility] [place] [address] [place] [address] 01/10/2021 00:00:00 02/08/2021 09:02:16 [id number] KULDEEP Melgoza [facility] [place] [address] [place] [address] 01/15/2022 00:00:00 01/15/2022 15:02:01 [id number] KULDEEP Melgoza [facility] [place] [address] [place] [address] 01/16/2023 10:29:00 01/16/2023 11:04:41 Adult health examination 289222758 Z00.00 well exam completed. annual labs ordered for fasting evaluation Cholesterol screening 27 2132593 Z13.220 Diabetes m ellitus screening 095213578 Z13.1 Body mass index 30+ - obesity 793691467 Z68.30 pt would like to start wegovy for weight loss assistance if insurance will authorize. no fam hx of contraindi cations (MEN, Med thyroid cancer) Generalize d anxiety disorder 07773356 F41.1 stable on sertraline 100mg daily Health Concerns Section Related Observation LastModified by Organization Detai ls LastModified Time None Recorded Concern Status LastModified by Organization Details LastModified Time None Recorded Advance Directives Directive Y: Payers Insurance Date Sequence Insurance Name Policy Number Policy Aguirre Covered Member ID Aguirre Member ID Guarantor Name 02/06/2023 1 [facility] () Cora Josse [id number] Ewelina Loaiza Notes Date Note Type Note Provider Name and Address Organization Details Recorded Time 01/10/2021 text/html Anxiety, General ized DisorderReported bypatient.Associated Symptoms:no difficulty concentrating; no difficulty controlling worry; no difficulty swallowing; no anxiety; no excessive sweating; no hot flashes; no palpitations; no shortness of breath; no nausea; no diarrhea; no fatigue; no irritability; no muscle tension; no muscle aches; no trembling; no twitching; no headaches; no restlessness; no sleep disturbances Not Available [facility] [employer] [facility] 02/08/2021 09:02:16 01/15/2022 text/html Anxiety/Depressi onRep orted bypatient.Severity:de nies suicidal ideations; able to maintain relationships; does not interfere with activities of daily living Context:no major life stressors Associated Symptoms:denies homicidal ideations; no significant weight gain; no significant weight loss; no visual/auditory hallucinations; no delusions; no shortness of breath; mood good; no anxiety; no crying spells; no panic; no isolation; sleeping well; appetite good; energy good; no apathy; maintaining functionality Not Available [facility] [employer] [facility] 01/15/2022 15:02:01 01/16/2023 text/html Anxiety/Depressi onRep orted bypatient.Quality:lockhart snt matter time of day. Severity:denies suicidal ideations; able to maintain relationships; does not interfere with activities of daily living Duration:symptoms lasting over 2 weeks Onset/Timing:still present Context:no major life stressors Associated Symptoms:denies homicidal ideations; no significant weight gain; no significant weight loss; no visual/auditory hallucinations; no delusions; no shortness of breath Wellness KULDEEP Melgoza [address], [address], [facility] [employer] [facility] 02/05/2023 23:55:20 OBGyn Episode No OBEpisode recorded.
[2024-10-26 09:09] VITALS: BP 101/66; PULSE 79; RESP 16; TEMP 37; O2SAT 100; BMI 20.7
[2024-10-26 09:22] LABS: BEDSIDEPREGUCG Negative (Negative)
[2024-10-26] MEDS: LACTATED RINGERS 1,000 ML 150 ML IV CONT (09:25)
--- NOTE | 2024-10-26 09:44 | P.HP_ITS ---
H&P: HPI History of Present Illness Date/Time: 10/26/24 09:44 Chief Complaint: Screening colonoscopy Narrative: This is the patient's first colonoscopy. There are no GI symptoms and there is no family history of colorectal cancer. Review of Systems Review of Systems: All systems reviewed & are unremarkable except as noted in HPI and [facility] Social History Social History Smoking status: Never smoker Alcohol intake: never Substance use: never Substance use type: does not use Living arrangements: with family Spiritual care concerns: No Meds Home Medications and Allergies Home Medications ?Medication ?Instructions ?Recorded ?Confirmed ?Type doxycycline hyclate 50 mg capsule 50 mg PO DAILY 10/13/24 10/26/24 History multivitamin 1 tablet PO DAILY 10/13/24 10/26/24 History sertraline 100 mg tablet 100 mg PO DAILY 10/13/24 10/26/24 History Allergies Allergy/AdvReac Type Severity Reaction Status Date / Time No Known Allergies Allergy Mild Verified 10/26/24 09:13 Vital Signs Vital Signs - 24 hr 10/26/24 09:09 Temperature 98.6 F Pulse Rate 79 Respiratory Rate 16 Blood Pressure 101/66 Pulse Oximetry 100 Oxygen Delivery Room Air Exam Const: General: cooperative and healthy appearing Resp: Effort & Inspection: normal respiratory effort and able to speak in complete sentences Auscultation: clear to auscultation bilaterally Cardio: Rate: regular rate Rhythm: regular rhythm GI: Inspection: normal to inspection GI Palp: No No hepatosplenomegaly present Auscultation: normal bowel sounds Rectal Exam: deferred Skin: General skin exam: normal color Psych: Appearance: grossly normal Mental Status: mental status grossly normal Assessment and Plan Assessment and plan (1) Encounter for screening colonoscopy: Code(s): Z12.11 - Encounter for screening for malignant neoplasm of colon Status: Acute Assessment and Plan: The patient is deemed a good candidate for the procedure. Consent signed. Will proceed.
--- NOTE | 2024-10-26 09:47 | WPDANESEPPF ---
Anes - Initial Pre Proc Eval Procedure: Operation Date: 10/26/24 10:30 Proposed Procedures p Screening Colonoscopy - Geovani Cordero MD Date/Time: 10/26/24 09:47 Surgeon: Geovani Cordero MD Pre Op Diagnosis: Screening Patient Data Age: 44 Gender: F Height: 1.75 m Weight: 63.9 kg Last Vital Signs Temp 37.0 C 10/26/24 09:09 Pulse 79 10/26/24 09:09 Resp 16 10/26/24 09:09 BP 101/66 10/26/24 09:09 Pulse Ox 100 10/26/24 09:09 O2 Del Method Room Air 10/26/24 09:09 Allergies Allergy/AdvReac Type Severity Reaction Status Date / Time No Known Allergies Allergy Mild Verified 10/26/24 09:13 Home Medications ?Medication ?Instructions ?Recorded ?Confirmed ?Type doxycycline hyclate 50 mg capsule 50 mg PO DAILY 10/13/24 10/26/24 History multivitamin 1 tablet PO DAILY 10/13/24 10/26/24 History sertraline 100 mg tablet 100 mg PO DAILY 10/13/24 10/26/24 History Laboratory Tests 10/26/24 09:20 POC Urine HCG, Qual Negative (Negative) Patient hx anesthesia problems: none Family hx anesthesia problems: none Results Review: All pre-operative results and documents have been reviewed as part of the pre-operative evaluation. [facility] Social History Social History Smoking status: Never smoker Alcohol intake: never Substance use: never Substance use type: does not use Living arrangements: with family Spiritual care concerns: No Anes - Eval Final PreProcedure Day of Procedure 10/26/24 09:47 Patient weight: normal Heart: regular rate and rhythm Lungs: clear to auscultation Airway: Mallampati scale class II Neurological: alert and oriented Last oral intake: >/= 8 hours ASA classification: II Emergent: no Anesthetic plan: proceed Anesthesia type and monitoring: general GIVS and standard monitoring Results Review: All pre-operative results and documents have been reviewed as part of the pre-operative evaluation. Informed Consent: The patient's anesthetic plan and its attendant risks and benefits were discussed with the patient/family/POA. Questions were solicited and answers provided to the satisfaction of the patient/family/POA.
[2024-10-26 10:10] VITALS: BP 81/50; PULSE 73; RESP 18; O2SAT 100
[2024-10-26 10:20] VITALS: BP 96/65; PULSE 73; RESP 18; O2SAT 100
[2024-10-26 10:30] VITALS: PULSE 75; RESP 20; O2SAT 100
== END 2024-10-26 10:39 | disposition home or self-care (01) ==
PROVIDERS: Anesthesiology; PCP Physician Assistant; Referring Provider Physician Assistant; Visit Provider Internal Medicine Gastroenterology
PROC: 0DJD8ZZ Inspection of Lower Intestinal Tract, Via Natural or Artificial Opening Endoscopic (ICD-10-PCS; CPT 45378; principal; 2024-10-26 10:30)
DX: Z12.11 Encounter for screening for malignant neoplasm of colon (principal)
CPT/HCPCS: 45378; J2003; J2704; J7120